=== PATIENT | female | born 1960 | race Caucasian/White ===

== ENCOUNTER 2021-05-09 11:07 | Outpatient (CLI) | payer BC ==
[2021-05-09 12:46] LABS: #Monocytes 0.2 10x3/uL (0.0-1.1); %Basophils 0.8 % (0.0-2.0); %Monocytes 4.8 % (0.0-10.0); %Neutrophils 51.1 % (40.0-75.0); Hemoglobin 11.5 g/dL (12.0-15.5); Mean Corpuscular Hemoglobin 29.3 pg (27.0-33.0); Platelet Count 187 10x3/uL (150-450); RBC Distribution Width 13.9 % (11.5-14.5); Red Blood Cell (RBC) Count 3.92 10x6/uL (3.90-5.03)
[2021-05-09 12:48] LABS: INR-International Normal Ratio 0.9; Prothrombin Time 10.4 sec (9.5-12.1)
[2021-05-09 13:01] LABS: Anion Gap 13 mmol/L (10-20); BUN (Urea Nitrogen) 11 mg/dL (9.8-20.1); Calc. Creatinine Clearance 0 mL/min (70-130); Calcium 9.2 mg/dL (7.8-10.44); Carbon Dioxide 26 mmol/L (23-31); Chloride 105 mmol/L (98-107); Glucose 135 mg/dL (80-115); Potassium 3.5 mmol/L (3.5-5.1); Sodium 140 mmol/L (136-145)
[2021-05-10 13:49] LABS: SARS-CoV-2 PCR by NAA Not Detected (NotDetected)
== END 2021-05-09 11:08 | disposition home or self-care (01) ==
LOC: LABBT 11:07
PROVIDERS: ATTEND Orthopaedic Surgery
DX: Z01.818 Encounter for other preprocedural examination (principal); M17.12 Unilateral primary osteoarthritis, left knee; Z20.822 Contact with and (suspected) exposure to COVID-19
CPT/HCPCS: 80048; 85025; 85610; 87081; 93005; 93010; U0003; U0005

== ENCOUNTER 2021-06-14 10:58 | Outpatient (CLI) | payer BC ==
[2021-06-15 00:01] LABS: SARS-CoV-2 PCR by NAA Not Detected (NotDetected)
== END 2021-06-14 10:59 | disposition home or self-care (01) ==
LOC: LABBT 10:58
PROVIDERS: ATTEND Orthopaedic Surgery
DX: Z01.812 Encounter for preprocedural laboratory examination (principal); M17.12 Unilateral primary osteoarthritis, left knee; Z20.822 Contact with and (suspected) exposure to COVID-19
CPT/HCPCS: U0003; U0005

== ENCOUNTER 2021-06-17 05:32 | Observation (INO) | payer BC ==
[2021-06-12 12:30] VITALS: BMI 28.0
[2021-06-17] MEDS ORDERED: Fentanyl 250 MCG/5 ML VIAL ONE ×2 (06:01→08:52)
[2021-06-17] MEDS ORDERED: Tranexamic Acid 1,000 MG/10 ML VIAL ONE (06:30)
[2021-06-17] MEDS ORDERED: Sodium Chloride 0.9% 100 ML ONE (06:30)
[2021-06-17] MEDS ORDERED: Vancomycin 1 GM/200 ML BAG ONE (06:30)
[2021-06-17] MEDS ORDERED: Midazolam HCl 2 mg/2 ml Vial ONE (06:39)
[2021-06-17] MEDS ORDERED: Lidocaine 1% (PF) 30 ML VIAL ONE (06:39)
[2021-06-17] MEDS ORDERED: HYDROcodone/Acetaminophen 10/325 mg Tablet PO PRN ×3 (06:48→09:00)
[2021-06-17] MEDS ORDERED: Ondansetron PF 4 MG/2 ML Vial IVP PRN ×2 (06:48→09:00)
[2021-06-17] MEDS ORDERED: diphenhydrAMINE 25 MG CAP PO PRN (06:48)
[2021-06-17] MEDS ORDERED: Promethazine HCl 25 MG/ML VIAL IM PRN ×3 (06:48→09:00)
[2021-06-17] MEDS ORDERED: Zolpidem Tartrate 5 MG TAB PO PRN (06:48)
[2021-06-17] MEDS ORDERED: Acetaminophen 325 MG TAB PO PRN (06:48)
[2021-06-17] MEDS ORDERED: Fentanyl 100 MCG/2 ML VIAL SLOW IVP PRN (06:48)
[2021-06-17] MEDS ORDERED: ceFAZolin 2 GM/DEX 5% 100 ML BAG ONE (06:53)
[2021-06-17] MEDS ORDERED: Bupivacaine HCl 0.5%/Epinephrine 1:200,000/PF 30 ml Vial ONE (07:11)
[2021-06-17] MEDS ORDERED: Ondansetron PF 4 MG/2 ML Vial ONE (07:11)
[2021-06-17] MEDS ORDERED: Metoclopramide HCl 10 MG/2 ML VIAL ONE (07:11)
[2021-06-17] MEDS ORDERED: PROPOFOL 200 MG/20 ML VIAL ONE (07:11)
[2021-06-17] MEDS ORDERED: Lidocaine 1% PF 5 ML VIAL ONE (07:11)
[2021-06-17] MEDS ORDERED: Dexamethasone 20 MG/5 ML VIAL ONE (07:11)
[2021-06-17] MEDS ORDERED: Ketorolac Tromethamine 30 MG/ML VIAL ONE (07:11)
[2021-06-17] MEDS ORDERED: Bupivacaine PF 0.5% 30 ML VIAL ONE (07:45)
[2021-06-17] MEDS ORDERED: Promethazine HCl 25 MG/ML VIAL IVPB PRN (08:44)
[2021-06-17] MEDS ORDERED: HYDROmorphone 2 MG/ML VIAL SLOW IVP PRN (08:44)
[2021-06-17] MEDS ORDERED: Ondansetron HCl/PF 4 MG/2 ML Vial IVP PRN (08:44)
[2021-06-17] MEDS ORDERED: Meperidine HCl/PF 25 MG/ML VIAL ONE (08:51)
[2021-06-17] MEDS ORDERED: Fentanyl 100 MCG/2 ML VIAL IV PRN (08:57)
[2021-06-17] MEDS ORDERED: Ropivacaine 0.2% 550 ML 550 ML NERVE BLCK SCH (09:00)
[2021-06-17] MEDS ORDERED: traMADol HCl 50 MG TAB PO PRN ×2 (09:00)
[2021-06-17] MEDS: Ferrous Gluconate 324 MG TAB PO SCH ×2 (11:07→20:39)
[2021-06-17] MEDS: Senokot S 8.6-50 MG TAB PO SCH ×2 (11:07→20:39)
[2021-06-17] MEDS: Aspirin 81 mg Enteric Coated Tablet PO SCH ×2 (11:07→20:39)
[2021-06-17] MEDS: Multivitamin W/ Minerals 1 TAB PO SCH (11:07)
[2021-06-17] MEDS: Sodium Chloride 0.9% 1,000 ML IV SCH ×2 (11:07→17:12)
[2021-06-17] MEDS: Cholecalciferol 1,000 UNITS (25 MCG) TAB PO SCH (11:07)
[2021-06-17] MEDS: Zinc Sulfate 220 MG CAP PO SCH (11:08)
[2021-06-17] MEDS: Ketorolac Tromethamine 30 MG/ML VIAL IVP SCH ×3 (11:20→23:40)
[2021-06-17] MEDS ORDERED: Ketorolac Tromethamine 30 MG/ML VIAL IM SCH (14:00)
[2021-06-17] MEDS: CEFAZOLIN 2 GM, Admixture Fee 1 EACH in Sodium Chloride 0.9% 100 ML IVPB SCH ×2 (14:34→22:15)
[2021-06-17] MEDS: Zolpidem Tartrate 5 MG TAB PO PRN (20:39)
[2021-06-18] MEDS: Sodium Chloride 0.9% 1,000 ML IV SCH ×2 (04:38→18:15)
[2021-06-18] MEDS: Ketorolac Tromethamine 30 MG/ML VIAL IVP SCH ×3 (04:53→18:14)
[2021-06-18 06:56] LABS: Hemoglobin 9.7 g/dL (12.0-16.0); Mean Corpuscular HGB CONC 34.4 g/dL (32.0-36.0); Mean Corpuscular Hemoglobin 31.2 pg (27.0-31.0); Mean Corpuscular Volume 90.5 fL (78.0-98.0); Platelet Count 146 thou/uL (130-400); RBC Distribution Width 12.1 % (11.5-14.5); White Blood Cell (WBC) Count 7.8 thou/uL (4.8-10.8)
[2021-06-18] MEDS: Aspirin 81 mg Enteric Coated Tablet PO SCH ×2 (08:51→20:38)
[2021-06-18] MEDS: Senokot S 8.6-50 MG TAB PO SCH ×3 (08:51→20:38)
[2021-06-18] MEDS: Ferrous Gluconate 324 MG TAB PO SCH ×2 (08:54→20:38)
[2021-06-18] MEDS: Multivitamin W/ Minerals 1 TAB PO SCH (08:55)
[2021-06-18] MEDS: Zinc Sulfate 220 MG CAP PO SCH (08:55)
[2021-06-18] MEDS: Cholecalciferol 1,000 UNITS (25 MCG) TAB PO SCH (08:55)
[2021-06-18] MEDS: HYDROcodone/Acetaminophen 10/325 mg Tablet PO PRN (11:26)
[2021-06-18] MEDS ORDERED: FLU VACC QS2021-22(6MOS UP)/PF 60 MCG/0.5 ML SYRINGE IM ONE (11:45)
[2021-06-18] MEDS: Zolpidem Tartrate 5 MG TAB PO PRN (22:09)
[2021-06-19] MEDS: Ketorolac Tromethamine 30 MG/ML VIAL IVP SCH ×2 (00:12→05:54)
[2021-06-19] MEDS: Sodium Chloride 0.9% 1,000 ML IV SCH ×2 (00:12→00:37)
[2021-06-19 05:29] LABS: Mean Corpuscular HGB CONC 33.8 g/dL (32.0-36.0); Mean Corpuscular Hemoglobin 30.8 pg (27.0-31.0); Mean Corpuscular Volume 91.1 fL (78.0-98.0); Platelet Count 124 thou/uL (130-400); RBC Distribution Width 12.2 % (11.5-14.5); Red Blood Cell (RBC) Count 2.94 mill/uL (4.20-5.40); White Blood Cell (WBC) Count 5.2 thou/uL (4.8-10.8)
[2021-06-19] MEDS: Ferrous Gluconate 324 MG TAB PO SCH (08:49)
[2021-06-19] MEDS: Zinc Sulfate 220 MG CAP PO SCH (08:49)
[2021-06-19] MEDS: Senokot S 8.6-50 MG TAB PO SCH ×2 (08:50→08:59)
[2021-06-19] MEDS: Aspirin 81 mg Enteric Coated Tablet PO SCH (08:52)
[2021-06-19] MEDS: Multivitamin W/ Minerals 1 TAB PO SCH (08:52)
[2021-06-19] MEDS: Cholecalciferol 1,000 UNITS (25 MCG) TAB PO SCH (08:52)
[2021-06-19] MEDS: HYDROcodone/Acetaminophen 10/325 mg Tablet PO PRN (08:57)
[2021-06-19 11:53] VITALS: BP 129/75; TEMP 97.8
== END 2021-06-19 13:34 | disposition home or self-care (01) ==
LOC: SDC 05:32 → SJJU 10:35
PROVIDERS: ADMIT Orthopaedic Surgery; ATTEND Orthopaedic Surgery
PROC: 0SRD0J9 Replacement of Left Knee Joint with Synthetic Substitute, Cemented, Open Approach (ICD-10-PCS; principal; 2021-06-17)
PROC: 8E0YXBZ Computer Assisted Procedure of Lower Extremity (ICD-10-PCS; 2021-06-17)
PROC: 3E0T3BZ Introduction of Anesthetic Agent into Peripheral Nerves and Plexi, Percutaneous Approach (ICD-10-PCS; 2021-06-17)
DX: M17.0 Bilateral primary osteoarthritis of knee (principal); M21.162 Varus deformity, not elsewhere classified, left knee; M21.061 Valgus deformity, not elsewhere classified, right knee; S86.112A Strain of other muscle(s) and tendon(s) of posterior muscle group at lower leg level, left leg, initial encounter; S46.212A Strain of muscle, fascia and tendon of other parts of biceps, left arm, initial encounter; Z79.2 Long term (current) use of antibiotics; Z98.84 Bariatric surgery status; X50.1XXA Overexertion from prolonged static or awkward postures, initial encounter
CPT/HCPCS: 36415; 85027; 96365; 96375; 96376; A4306; C1713; C1776; G0378; J0690; J1100; J1885; J2001; J2175; J2250; J2405; J2704; J2765; J2795; J3010; J3370; J3490; J7050; S0020

== ENCOUNTER 2023-07-09 10:54 | Outpatient (CLI) | payer BC ==
[2023-07-09 11:56] LABS: #Eosinphils 0.1 10x3/uL (0.0-0.5); #Monocytes 0.2 10x3/uL (0.0-1.1); #Neutrophils 2.6 10x3/uL (1.5-8.4); %Basophils 0.6 % (0.0-2.0); %Lymphocytes 40.1 % (18.0-47.0); %Monocytes 4.8 % (0.0-10.0); %Neutrophils 52.3 % (40.0-75.0); Mean Corpuscular HGB CONC 34.2 g/dL (32.0-36.0); Mean Corpuscular Hemoglobin 29.7 pg (27.0-33.0); Mean Corpuscular Volume 86.8 fl (81.6-98.3); Mean Platelet Volume 10.8 fl (7.4-10.4); Platelet Count 182 10x3/uL (150-450); RBC Distribution Width 12.9 % (11.5-14.5); Red Blood Cell (RBC) Count 4.38 10x6/uL (3.90-5.03)
[2023-07-09 12:10] LABS: Anion Gap 12 mmol/L (10-20); BUN (Urea Nitrogen) 18 mg/dL (9.8-20.1); Calc. Creatinine Clearance 0 mL/min (70-130); Calcium 9.2 mg/dL (7.8-10.44); Carbon Dioxide 25 mmol/L (23-31); Chloride 107 mmol/L (98-107); Estimated GFR 80; Glucose 101 mg/dL (80-115); Potassium 3.9 mmol/L (3.5-5.1); Sodium 140 mmol/L (136-145)
[2023-07-09 12:16] LABS: INR-International Normal Ratio 0.9; Prothrombin Time 10.2 sec (9.5-12.1)
== END 2023-07-09 10:55 | disposition home or self-care (01) ==
LOC: LABBT 10:54
PROVIDERS: ATTEND Orthopaedic Surgery
DX: Z01.818 Encounter for other preprocedural examination (principal); M17.11 Unilateral primary osteoarthritis, right knee
CPT/HCPCS: 80048; 85025; 85610; 87081; 93005; 93010